=== PATIENT | female | born 1965 | race Two or more races ===

== ENCOUNTER → 2019-05-24 | Outpatient (CLI) | payer MEDICAID, OTHER ==
--- NOTE | 2019-05-24 11:21 | RAD ---
DATE: May 24, 2019 EXAM: DIGITAL SCREEN BILAT W/CAD HISTORY: Screening study COMPARISON: May 16, 2013 This study was interpreted with the benefit of Computerized Aided Detection (CAD). FINDINGS: Breast Density: SCATTERED The breast parenchyma shows scattered fibroglandular densities. Breast parenchyma level B.. There are no dominant suspicious masses, suspicious microcalcifications or evidence of architectural distortion. IMPRESSION: No mammographic indicators for malignancy BI-RADS CATEGORY: 1 NEGATIVE RECOMMENDED FOLLOW-UP: 12M 12 MONTH FOLLOW-UP PQRS compliance statement: Patient information was entered into a reminder system with a target due date May 25, 2020 for the next mammogram. Mammography is a sensitive method for finding small breast cancers, but it does not detect them all and is not a substitute for careful clinical examination. A negative mammogram does not negate a clinically suspicious finding and should not result in delay in biopsying a clinically suspicious abnormality. "Our facility is accredited by the [employer] Mammography Program." The patient's breast density may affect the ability of mammography to detect breast cancer. There are 4 categories of breast density, A, B, C and D. Breast density A means that most of the breast tissue is replaced with adipose tissue and therefore is not dense. Breast density B means that the breast tissue is mildly dense and scattered. Breast density C means that the breast tissue is heterogeneously dense. Breast density D means that the breast tissue is very dense. Breast densities especially C and D may decrease the sensitivity of mammography to detect breast cancer. Therefore, the patient may benefit from 3-D breast mammography (3D breast tomography) as a part of their screening mammogram. Insurance may or may not pay for this additional imaging. The patient's breast density based on today's mammogram is category B.
== END | disposition home or self-care (01) ==
LOC: MAMMO 08:45
PROVIDERS: ATTEND Family Medicine
DX: Z12.31 Encounter for screening mammogram for malignant neoplasm of breast (principal)
CPT/HCPCS: 77067

== ENCOUNTER → 2019-08-17 | Outpatient (CLI) | payer OTHER ==
[~2019-08-17] MED LIST: CHOL500062 PO; DOCU-109 PO; GABA300C18 PO; IBUP-1060 PO; LEVO50TA5 PO; MULT-735 PO
[2019-08-17 13:49] LABS: BASO % 0 % (0-3); EOS % 1 % (0-3); HEMATOCRIT 36.9 % (36.0-47.0); HEMOGLOBIN 11.9 g/dL (12.0-15.5); LYMPH # 2.6 x10^3/uL (1.0-4.8); LYMPH % 40 % (24-48); MEAN CORPUSCULAR HEMOGLOBIN 22 pg (25-35); MEAN CORPUSCULAR HGB CONC 32 g/dL (31-37); MEAN CORPUSCULAR VOLUME 69 fL (79-100); MONO # 0.4 x10^3/uL (0.0-1.1); MONO % 7 % (0-9); NEUT # 3.5 x10^3/uL (1.8-7.7); NEUT % 53 % (31-73); PLATELET COUNT 224 x10^3/uL (140-400); RED BLOOD COUNT 5.39 x10^6/uL (3.50-5.40); RED CELL DISTRIBUTION WIDTH 15.5 % (11.5-14.5); WHITE BLOOD COUNT 6.7 x10^3/uL (4.0-11.0)
[2019-08-17 14:07] LABS: ANISOCYTOSIS SLIGHT; HYPOCHROMIA MOD; MICROCYTOSIS MOD; OVALOCYTES FEW; PLT ESTIMATE ADEQUATE (ADEQUATE); POIKILOCYTOSIS SLIGHT
== END | disposition home or self-care (01) ==
LOC: SURGPAT 12:29
PROVIDERS: ATTEND Obstetrics & Gynecology
DX: Z01.812 Encounter for preprocedural laboratory examination (principal)
CPT/HCPCS: 36415; 85025

== ENCOUNTER 2019-08-23 06:35 | Observation (INO) | payer OTHER ==
[2019-08-23] VITALS (10 sets, daily range): BP systolic 115–143; BP diastolic 82–95
[~2019-08-23] VITALS: Ht 147.3 cm; Wt 53.2 kg
[~2019-08-23 06:35] MED LIST changes: +AZTREONAM IV Push 1 GM VIAL. IVP PRN; +CLINDAMYCIN 900MG PREMIX 50 ML IV PRN; -DOCU-109 PO; -GABA300C18 PO; -IBUP-1060 PO
[2019-08-23] MEDS ORDERED: IV RINGERS,LACTATED 1000ML 1,000 ML IV SCH (07:00)
[2019-08-23] MEDS ORDERED: fentaNYL PF VIAL 100 MCG/2 ML VIAL IV PRN ×2 (07:00)
[2019-08-23] MEDS ORDERED: HYDROmorphone 2 MG/ML VIAL IV PRN (07:00)
[2019-08-23] MEDS ORDERED: ONDANSETRON PF 4 MG/2 ML VIAL. IV PRN ×2 (07:00→10:15)
[2019-08-23] MEDS ORDERED: MORPHINE SULFATE 2 MG/ML VIAL. IV PRN (07:00)
[2019-08-23] MEDS ORDERED: PROCHLORPERAZINE 10 MG/2 ML VIAL. IV PRN ×2 (07:00→10:15)
[2019-08-23] MEDS ORDERED: LIDOCAINE 1% PF 2 ML VIAL. ID PRN (07:00)
[2019-08-23] MEDS ORDERED: ESTROGENS, CONJ VAGINAL CREAM 30GM TUBE. ONE (07:16)
[2019-08-23] MEDS ORDERED: INDIGOTINDISULFONATE SODIUM 40 MG/5 ML AMPUL. ONE (07:16)
[2019-08-23] MEDS ORDERED: LIDOCAINE 1%/EPI 1:100,000 20 ML VIAL. ONE ×3 (07:17→09:18)
[2019-08-23] MEDS ORDERED: LIDOCAINE 2% PF 5 ML VIAL. ONE (07:40)
[2019-08-23] MEDS ORDERED: PROPOFOL 20 ML IV ONE (07:40)
[2019-08-23] MEDS ORDERED: DEXAMETHASONE SOD PHOS 4 MG/ML VIAL ONE (07:41)
[2019-08-23] MEDS ORDERED: ONDANSETRON PF 4 MG/2 ML VIAL. ONE (07:41)
[2019-08-23] MEDS ORDERED: ROCURONIUM 50 MG/5 ML VIAL. ONE ×2 (07:41)
[2019-08-23] MEDS ORDERED: MIDAZOLAM HCL/PF 2 MG/2 ML VIAL. ONE (07:42)
[2019-08-23] MEDS ORDERED: fentaNYL PF VIAL 100 MCG/2 ML VIAL ONE ×3 (07:43→09:59)
[2019-08-23] MEDS ORDERED: SUCCINYLCHOLINE 200 MG/10 ML VIAL. ONE (08:09)
[2019-08-23] MEDS ORDERED: KETOROLAC 30 MG/ML VIAL. ONE (08:23)
[2019-08-23] MEDS ORDERED: NEOSTIGMINE METHYLSULFATE 5 MG/5 ML SYRINGE. ONE (09:26)
[2019-08-23] MEDS ORDERED: GLYCOPYRROLATE 1 MG/5 ML VIAL. ONE (09:26)
[2019-08-23] MEDS ORDERED: SEVOFLURANE 61 TO 120 MINUTES. IH ONE (09:36)
[2019-08-23] MEDS ORDERED: PROCHLORPERAZINE 10 MG/2 ML VIAL. ONE (09:59)
--- NOTE | 2019-08-23 10:05 | PDOC ---
BRIEF OPERATIVE NOTE Date: Aug 23, 2019 Pre-Op Diagnosis 1. Complete pelvic prolapse 2. MATY Post-Op Diagnosis SAme Procedure Performed 1. TVH and BSO 2. Sacrospinous Ligament Fixation 3. Bladder Sling 4. Anterior Colporrhaphy Surgeon Dr. Liang Anesthesia Type: General Blood Loss 100 ml Specimens Obtained cervix, uterus, chelsie. fallopian tubes and ovaries Findings complete pelvic prolapse with MATY Complications none Operative Note see dictation CLARISSA LIANG Jr, MD Aug 23, 2019 10:05
[2019-08-23] MEDS ORDERED: diphenhydrAMINE HCL 25 MG CAPSULE PO PRN (10:15)
[2019-08-23] MEDS ORDERED: ZOLPIDEM 5 MG TABLET. PO PRN (10:15)
[2019-08-23] MEDS ORDERED: diphenhydrAMINE 50 MG/ML VIAL IV PRN (10:15)
[2019-08-23] MEDS ORDERED: SIMETHICONE 80 MG TAB.CHEW PO PRN (10:15)
[2019-08-23] MEDS ORDERED: 0.9 % SODIUM CHLORIDE 10 ML DISP.SYRIN. IV PRN (10:15)
[2019-08-23] MEDS ORDERED: DEXTROSE 50% 25 GM / 50ML DISP.SYRIN. IV PRN (10:15)
[2019-08-23] MEDS ORDERED: CALCIUM CARBONATE 500 MG TAB.CHEW PO PRN (10:15)
--- NOTE | 2019-08-23 11:05 | OP ---
DATE OF SURGERY: 08/23/2019 PREOPERATIVE DIAGNOSES: 1. Complete pelvic prolapse. 2. Stress urinary incontinence. POSTOPERATIVE DIAGNOSES: 1. Complete pelvic prolapse. 2. Stress urinary incontinence. PROCEDURE: 1. TVH and BSO. 2. Sacrospinous ligament fixation. 3. Bladder sling. 4. Anterior colporrhaphy. SURGEON: Clarissa Loyd MD ANESTHESIA: GETA. ESTIMATED BLOOD LOSS: 100 mL. COMPLICATIONS: None. FINDINGS: Complete pelvic prolapse with stress urinary incontinence. SUMMARY: This is a 54-year-old female who had long-standing complete pelvic prolapse and stress urinary incontinence requiring TVH and BSO, sacrospinous ligament fixation, anterior repair and bladder sling. She was counseled on risks, benefits, and expectations as well as the erosion rate for mesh material and voiced clear understanding to proceed. DESCRIPTION OF PROCEDURE: The patient was taken to surgery suite and placed in dorsal lithotomy position. She was prepped with Betadine solution and draped in sterile fashion. After adequate anesthesia, weighted speculum and curved Kaila placed vaginally. The anterior and posterior lip of the cervix grasped with Nadia clamps. 1% lidocaine with epinephrine injected in a circumferential manner. Bovie cautery was utilized to circumscribe the cervix. The vaginal wall mucosa was dissected away from the lower uterine segment using blunt dissection with a moist Ray-Belén. The parametrial tissue was clamped bilaterally, cut, and suture ligated with 2-0 Vicryl suture. Posterior cul-de-sac was entered sharply using curved Denise scissors. The long weighted speculum was then placed. The uterosacral ligaments were clamped bilaterally, cut, and suture ligated. Cardinal ligaments clamped bilaterally, cut, and suture ligated. Anterior cul-de-sac was entered with sharp dissection using Metzenbaum scissors. The uterus was retroverted. The uteroovarian pedicles were clamped bilaterally, cut, and suture ligated. The uterus and cervix were then removed. Fadi was utilized to grasp the left fallopian tube and ovary in which the left infundibulopelvic ligament was clamped with curved Hung clamp, cut, and tied with free tie followed by stick tie. Same process took place with the right adnexa. The pedicles were all hemostatic. We then proceeded forward with the sacrospinous ligament fixation. The capsule device was utilized to place permanent sutures through the medial aspect of the right sacrospinous ligament in which 2 sutures were placed there and attached to the anterior and posterior vaginal cuff. They were then tied to a loose fit for the pelvic support. The remainder of the vaginal cuff was re-approximated using 2-0 Vicryl sutures in a [id number] manner. An Allis clamp was placed 1 cm below the urethral orifice and second Allis clamp was placed 4 cm below the first Allis clamp on the anterior vaginal wall at the midline. 1% lidocaine with epinephrine was injected between the 2 Allis clamps in linear fashion as well as in the periurethral space. 1% lidocaine with epinephrine was injected at the insertion points of the trocar as well, which was at the point where the intersection of the adductus longus and the pubic rami at the level of the clitoris bilaterally. An incision was made at the insertion points. Incision was made between the 2 Allis clamps in a vertical fashion. The anterior vaginal wall was dissected away from the pubovesical fascia using sharp dissection with Metzenbaum scissors bilaterally along with blunt dissection with a moist Ray-Belén. The periurethral space was further dissected sharply as well as bluntly all the way to the obturator foramen bilaterally. The left Obtryx trocar was then placed through the insertion site and guided with my index finger through the periurethral space. The mesh was then attached and the trocar was removed in the opposite fashion. Same process took place with the right insertion point. Cystoscopy was performed in which the bladder appeared normal. There was no evidence of perforation or injury. The cystoscope was then removed. The mesh was then adjusted to a loose fit using size 7 Hegar dilator. The exposed mesh at the groin region was excised using suture scissors. The incisions were reapproximated using Dermabond. The anterior repair was performed in which the pubovesical fascia was re-approximated with 2-0 Vicryl suture in an interrupted fashion. The excess anterior vaginal mucosa was excised with Metzenbaum scissors. The remaining anterior vaginal wall mucosa was re-approximated using 2-0 Vicryl suture in [id number] manner. A rectal exam was performed, which did not prove to require a posterior repair at this time. Posadas catheter was placed, which elicited clear yellow urine. A Premarin soaked vaginal packing was then placed. The patient tolerated the procedure well and was taken to recovery room in stable condition. Sponge and needle count correct x 3. CLARISSA LOYD MD DR: KAREN/sergei JOB#: [id number] / [id number]
[2019-08-23] MEDS: GABAPENTIN 300 MG CAPSULE. PO SCH ×2 (14:00→21:47)
[2019-08-23] MEDS: KETOROLAC 30 MG/ML VIAL. IV PRN ×2 (14:22→20:00)
[2019-08-23] MEDS: oxyCODONE/APAP 5/325 1 TAB TABLET PO PRN (17:49)
[2019-08-24 02:45] VITALS: BP 122/80
[2019-08-24 05:18] LABS: BASO % 0 % (0-3); EOS % 0 % (0-3); HEMATOCRIT 36.6 % (36.0-47.0); LYMPH # 1.5 x10^3/uL (1.0-4.8); LYMPH % 15 % (24-48); MEAN CORPUSCULAR HEMOGLOBIN 22 pg (25-35); MEAN CORPUSCULAR HGB CONC 33 g/dL (31-37); MEAN CORPUSCULAR VOLUME 68 fL (79-100); MONO # 0.8 x10^3/uL (0.0-1.1); MONO % 8 % (0-9); NEUT # 7.6 x10^3/uL (1.8-7.7); NEUT % 77 % (31-73); PLATELET COUNT 214 x10^3/uL (140-400); RED CELL DISTRIBUTION WIDTH 15.6 % (11.5-14.5); WHITE BLOOD COUNT 9.9 x10^3/uL (4.0-11.0)
[2019-08-24] MEDS: GABAPENTIN 300 MG CAPSULE. PO SCH ×2 (05:31→14:38)
[2019-08-24 05:46] VITALS: BP 103/70
[2019-08-24 10:17] LABS: ANISOCYTOSIS PRESENT; HYPOCHROMIA PRESENT; MICROCYTOSIS PRESENT; PLT ESTIMATE ADEQUATE (ADEQUATE); POIKILOCYTOSIS PRESENT
[2019-08-24] MEDS: oxyCODONE/APAP 5/325 1 TAB TABLET PO PRN (10:59)
[2019-08-24 11:00] VITALS: BP 97/71
--- NOTE | 2019-08-24 14:09 | PDOC ---
SURGICAL PROGRESS NOTE Subjective Pt. feeling well. No complaints. She is emptying bladder completely and ambulating in room. Vital Signs Vital Signs Date Time Temp Pulse Resp B/P (MAP) Pulse Ox O2 Delivery O2 Flow Rate FiO2 08/24/19 11:00 97.9 84 18 97/71 (80) 97 Room Air 97.9 08/23/19 10:35 10 I&O Intake and Output 08/24/19 07:00 Intake Total 1450 ml Output Total 2070 ml Balance -620 ml Intake Oral 200 ml IV Total 1250 ml Output Urine Total 1970 ml Estimated Blood Loss 100 ml PATIENT HAS A CARLSON: No General: Alert, Oriented X3, Cooperative HEENT: Atraumatic Lungs: Clear to auscultation Heart: Regular rate Abdomen: Normal bowel sounds, Soft, No tenderness, No masses Extremities: No clubbing, No cyanosis Neuro: Normal gait Psych/Mental Status: Mental status NL Labs Laboratory Tests Test 08/24/19 04:35 White Blood Count 9.9 x10^3/uL (4.0-11.0) Red Blood Count 5.40 x10^6/uL (3.50-5.40) Hemoglobin 12.0 g/dL (12.0-15.5) Hematocrit 36.6 % (36.0-47.0) Mean Corpuscular Volume 68 fL (79-100) Mean Corpuscular Hemoglobin 22 pg (25-35) Mean Corpuscular Hemoglobin Concent 33 g/dL (31-37) Red Cell Distribution Width 15.6 % (11.5-14.5) Platelet Count 214 x10^3/uL (140-400) Neutrophils (%) (Auto) 77 % (31-73) Lymphocytes (%) (Auto) 15 % (24-48) Monocytes (%) (Auto) 8 % (0-9) Eosinophils (%) (Auto) 0 % (0-3) Basophils (%) (Auto) 0 % (0-3) Neutrophils # (Auto) 7.6 x10^3/uL (1.8-7.7) Lymphocytes # (Auto) 1.5 x10^3/uL (1.0-4.8) Monocytes # (Auto) 0.8 x10^3/uL (0.0-1.1) Eosinophils # (Auto) 0.0 x10^3/uL (0.0-0.7) Basophils # (Auto) 0.0 x10^3/uL (0.0-0.2) Platelet Estimate Adequate (ADEQUATE) Hypochromasia Present Poikilocytosis Present Anisocytosis Present Microcytosis Present Laboratory Tests Test 08/24/19 04:35 White Blood Count 9.9 x10^3/uL (4.0-11.0) Red Blood Count 5.40 x10^6/uL (3.50-5.40) Hemoglobin 12.0 g/dL (12.0-15.5) Hematocrit 36.6 % (36.0-47.0) Mean Corpuscular Volume 68 fL (79-100) Mean Corpuscular Hemoglobin 22 pg (25-35) Mean Corpuscular Hemoglobin Concent 33 g/dL (31-37) Red Cell Distribution Width 15.6 % (11.5-14.5) Platelet Count 214 x10^3/uL (140-400) Neutrophils (%) (Auto) 77 % (31-73) Lymphocytes (%) (Auto) 15 % (24-48) Monocytes (%) (Auto) 8 % (0-9) Eosinophils (%) (Auto) 0 % (0-3) Basophils (%) (Auto) 0 % (0-3) Neutrophils # (Auto) 7.6 x10^3/uL (1.8-7.7) Lymphocytes # (Auto) 1.5 x10^3/uL (1.0-4.8) Monocytes # (Auto) 0.8 x10^3/uL (0.0-1.1) Eosinophils # (Auto) 0.0 x10^3/uL (0.0-0.7) Basophils # (Auto) 0.0 x10^3/uL (0.0-0.2) Platelet Estimate Adequate (ADEQUATE) Hypochromasia Present Poikilocytosis Present Anisocytosis Present Microcytosis Present Assessment/Plan A: POD#1 s/p TVH, BSO, SSF, Bladder sling and anterior repair P: D/c home. CLARISSA LOYD Jr, MD Aug 24, 2019 14:09
[2019-08-24] MEDS ORDERED: DOCU-109 PO (14:12)
[2019-08-24] MEDS ORDERED: GABA300C18 PO (14:12)
[2019-08-24] MEDS ORDERED: IBUP-1060 PO (14:12)
--- NOTE | 2019-08-24 14:13 | DISCH ---
DISCHARGE INSTRUCTIONS Condition on Discharge Condition on Discharge: Stable Activity After Discharge Activity Instructions for Disc: Activity as tolerated Lifting Instructions after Dis: No heavy lifting Driving Instructions after Dis: No driving for 2 weeks Diet after Discharge Diet after Discharge: Regular Contacting the DRFarhana after DC Call your doctor for: Concerns you may have Follow-Up Follow up with: Dr. Liang in 2 wks. CLARISSA LIANG Jr, MD Aug 24, 2019 14:12
[2019-08-24 17:20] VITALS: BP 92/66
--- NOTE | 2019-08-27 13:07 | PATHOLOGY ---
[facility] Accession Number: [id number] . 01 Material submitted: . PART A: uterus - UTERUS AND CERVIX PART B: ovary - LEFT TUBE AND OVARY. Modifiers: left PART C: ovary - RIGHT TUBE OVARY. Modifiers: right . 01 Clinical history: . prolapse . 02 Diagnosis: A. Uterus, transvaginal hysterectomy: - Hypercornification and mild chronic inflammation of exocervix consistent with uterine prolapse. - Mild chronic cervicitis with focal squamous metaplasia. - Atrophic endometrium. . B. Fallopian tube and ovary, left salpingo-oophorectomy: - Involutional changes of fallopian tube and ovary. . C. Fallopian tube and ovary, right salpingo-oophorectomy: - Involutional changes of fallopian tube and ovary. (JPM/db; 08/27/2019) LBQ 08/27/2019 1004 Local . 02 Electronically signed: . Anthony Burden MD, Pathologist NPI- [id number] . 01 Gross description: . A. The specimen is received in formalin, labeled "Her, Julienne, uterus and cervix" and consists of a 68 g uterus with attached cervix measuring 9.2 x 4.4 x 3.3 cm. The uterine serosa is pink-gupta and focally hemorrhagic. The slitlike 1.2 cm cervical os is surrounded by glistening to wrinkled pink-gupta ectocervical mucosa. It is bivalved revealing a corrugated mucoid endocervical canal measuring 5.0 cm in length. The endometrial cavity is triangular measuring 3.2 cm in length and 2.2 cm in width which is lined by a pink-red endometrium measuring 0.1 cm or less. The myometrium is pink-gupta measuring up to 1.9 cm with no nodules or mass lesions. [facility] sections are submitted as follows: . A1: Anterior cervix A2: Posterior cervix A3: Anterior endomyometrium A4: Posterior endomyometrium . B. The specimen is received in formalin, labeled "Her, Julienne, left tube and ovary" and consists of a partial fimbriated fallopian tube segment measuring 2.0 cm in length and 0.3 cm in diameter attached to a cerebriform gupta ovary measuring 1.8 x 1.1 x 0.7 cm. The specimen weighs 2 g. The fallopian tube reveals a well-defined lumen and no gross lesions. The ovary reveals unremarkable gupta cut surfaces. [facility] sections are submitted as follows: . B1: Entire fallopian tube B2: Ovary . C. The specimen is received in formalin, labeled "Her, Julienne, right tube and ovary" and consists of a partial fimbriated fallopian tube segment measuring 2.2 cm in length and up to 0.4 cm in diameter attached to a 2.0 x 0.8 x 0.6 cm ovary. The specimen weighs 4 g. The tube reveals a well-defined central lumen. The ovary reveals unremarkable white gupta cut surfaces. [facility] sections are submitted as follows: . C1: Fallopian tube C2: Ovary (SDY; 08/24/2019) SYU/SYU 08/24/2019 1555 Local . 02 Pathologist provided ICD-10: N72, N85.8, N81.4 . 02 CPT . 962071 Specimen Comment: Report sent to Specimen Comment: A duplicate report has been generated due to demographic updates. Performed at: 01 [facility] [address] [facility] [address], [place] [id number] MD Albin Encinas MD Phone: [phone] Performed at: 02 [facility] [address], [place] [id number] MD Anthony Burden MD Phone: [phone]
== END 2019-08-24 17:28 | disposition home or self-care (01) ==
LOC: SURG 06:35 → 3 NORTH 10:23
PROVIDERS: ADMIT Obstetrics & Gynecology; ATTEND Obstetrics & Gynecology
DX: N39.3 Stress incontinence (female) (male) (principal); N81.89 Other female genital prolapse
CPT/HCPCS: 36415; 57240; 58262; 85025; 86850; 86900; 86901; 96374; 96375; 96376; G0378; G0379; J0330; J1100; J1885; J2001; J2250; J2405; J2704; J2710; J3010; J3490; J7030; J7120; J0780; C1771